=== PATIENT | female | born 1990 | race Caucasian/White ===

== ENCOUNTER 2020-04-03 21:25 | Observation (INO) | payer OTHER ==
[2020-04-03] MEDS ORDERED: ASPIRIN 325 MG TAB PO ONE (21:48)
[2020-04-03 22:05] LABS: Red Blood Count 4.51 M/mm3 (3.65-5.03)
[2020-04-03] MEDS ORDERED: fentaNYL 100 MCG/2 ML INJ IV ONE (22:11)
[2020-04-03] MEDS ORDERED: ONDANSETRON 4 MG/2 ML INJ IV ONE (22:11)
[2020-04-03] MEDS ORDERED: NITROGLYCERIN 2% OINT 1 GM TP ONE (22:11)
--- NOTE | 2020-04-03 22:17 | Emergency Department Report ---
HPI - General Chief Complaint: Chest Pain Time Seen by Provider: 04/03/20 22:05 - HPI HPI: Room 6 The patient is a 29-year-old female present with a chief complaint of chest pain. Patient states for the past 3 days she has had intermittent substernal c hest pain feeling as though "someone is squeezing on my heart." The patient states 20 minutes prior to arrival to the ED today the pain is become constant. Patient admits to occasional shortness of breath but denies nausea/vomiting or diaphoresis. Patient denies fever or cough. Patient currently gives her pain a score of 9.5/10. Patient states she is never had a stress test or cardiac catheterization ED Past Medical Hx - Past Medical History Previous Medical History?: No - Surgical History Past Surgical History?: Yes Additional Surgical History: "abcess to tailbone" - Family History Family history: no significant - Social History Smoking Status: Never Smoker Substance Use Type: None (Denies illicit drug use), Alcohol (Occasional) - Medications Home Medications: Home Medications Medication Instructions Recorded Confirmed Last Taken Type No Known Home Medications [No 04/03/20 04/03/20 Unknown History Reported Home Medications] ED Review of Systems ROS: Stated complaint: CHEST PAIN, DIFFICULTY IN BREATHING Other details as noted in HPI Constitutional: denies: diaphoresis Eyes: denies: eye pain ENT: denies: throat pain Respiratory: shortness of breath. denies: cough Cardiovascular: chest pain Endocrine: no symptoms reported Gastrointestinal: denies: nausea, vomiting Musculoskeletal: denies: back pain Neurological: denies: headache Physical Exam - Physical Exam Vital Signs: Vital Signs 04/03/20 04/03/20 21:42 21:44 Temperature 98.0 F Pulse Rate 85 Respiratory 18 Rate Blood Pressure 174/99 O2 Sat by Pulse 100 Oximetry Physical Exam: GENERAL: The patient is well-developed well-nourished female lying on stretcher not appearing to be in acute distress. [] HEENT: Normocephalic. Atraumatic. Extraocular motions are intact. Patient has moist mucous membranes. NECK: Supple. Trachea midline CHEST/LUNGS: Clear to auscultation. There is no respiratory distress noted. HEART/CARDIOVASCULAR: Regular. There is no tachycardia. There is no gallop rub or murmur. ABDOMEN: Abdomen is soft, nontender. Patient has normal bowel sounds. There is no abdominal distention. SKIN: There is no rash. There is no edema. There is no diaphoresis. and gait. MUSCULOSKELETAL: There is no evidence of acute injury. ED Course Vital Signs 04/03/20 04/03/20 21:42 21:44 Temperature 98.0 F Pulse Rate 85 Respiratory 18 Rate Blood Pressure 174/99 O2 Sat by Pulse 100 Oximetry ED Medical Decision Making - Lab Data Result diagrams: 04/03/20 21:55 04/03/20 21:55 Laboratory Tests 04/03/20 04/03/20 04/03/20 21:55 21:55 21:55 WBC 7.2 RBC 4.51 Hgb 12.6 Hct 39.2 MCV 87 MCH 28 MCHC 32 RDW 16.1 H Plt Count 328 Lymph % (Auto) 40.2 H [place] % (Auto) 13.3 H Eos % (Auto) 1.6 Baso % (Auto) 0.4 Lymph # 2.9 Randall # 1.0 H Eos # 0.1 Baso # 0.0 Seg Neutrophils % 44.5 Seg Neutrophils # 3.2 Sodium 138 Potassium 4.1 Chloride 100.6 Carbon Dioxide 25 Anion Gap 17 BUN 14 Creatinine 0.6 L Estimated GFR > 60 BUN/Creatinine Ratio 23 Glucose 95 Calcium 9.3 Troponin T < 0.010 HCG, Qual Negative - EKG Data -: EKG Interpreted by Me EKG shows normal: sinus rhythm Rate: normal - EKG Data When compared to previous EKG there are: previous EKG unavailable Interpretation: nonspecific ST-T wave marivel (T wave inversion lead III.) - Radiology Data Radiology results: report reviewed (Chest x-ray), image reviewed (Chest x-ray) interpreted by me: Chest x-ray-no focal infiltrates, no pneumothorax [facility] [address] [place] [address] XRay Report Signed Patient: CATHERINE RIVERA MR #: [id number] : 01/1990 Acct:[id number] Age/Sex: 29 / F ADM Date: 04/03/20 Loc: ED Attending Dr: Ordering Physician: CHELA HERNÁNDEZ MD Date of Service: 04/03/20 Procedure(s): XR chest 1V ap Accession Number(s): [id number] cc: CHELA HERNÁNDEZ MD Fluoro Time In Minutes: CHEST 1 VIEW INDICATION: Chest pain. COMPARISON: None. FINDINGS: Support devices: None. Heart: Normal. Lungs/Pleura: No acute pulmonary or pleural findings. IMPRESSION: 1. No acute findings. Signer Name: Ganesh Hernandez MD Signed: 04/03/2020 11:10 PM Workstation Name: [id number] Transcribed By: SW Dictated By: Ganesh Hernandez MD Electronically Authenticated By: Ganesh Hernandez MD Signed Date/Time: 04/03/202309 DD/ 08 TD/TT: - Differential Diagnosis ACS, pericarditis, GERD Critical care attestation.: If time is entered above; I have spent that time in minutes in the direct care of this critically ill patient, excluding procedure time. ED Disposition Clinical Impression: Chest pain Disposition: -09 OP ADMIT IP TO THIS HOSP Is pt being admited?: Yes Does the pt Need Aspirin: Yes Condition: Fair Instructions: Chest Pain (ED) Time of Disposition: 23:48 (Hospitalist paged (Dr Rincon))
[2020-04-03 22:23] LABS: BUN/Creatinine Ratio 23; Blood Urea Nitrogen 14 mg/dL (7-17)
[2020-04-03 22:24] LABS: Calcium 9.3 mg/dL (8.4-10.2)
[2020-04-03 22:32] LABS: Hemoglobin 12.6 gm/dl (10.1-14.3)
[2020-04-03 22:33] LABS: Basophils % (Auto) 0.4 % (0.0-1.8); Eosinophils % (Auto) 1.6 % (0.0-4.3); Hematocrit 39.2 % (30.3-42.9); Lymphocytes % (Auto) 40.2 % (13.4-35.0); Mean Corpuscular HGB Conc 32 % (30-34); Mean Corpuscular Volume 87 fl (79-97); Monocytes % (Auto) 13.3 % (0.0-7.3); Platelet Count 328 K/mm3 (140-440); Red Cell Distribution Width 16.1 % (13.2-15.2)
[2020-04-03 22:34] LABS: Eosinophils # (Auto) 0.1 K/mm3 (0.0-0.4); Lymphocytes # (Auto) 2.9 K/mm3 (1.2-5.4)
--- NOTE | 2020-04-03 23:14 | XRay Report ---
CHEST 1 VIEW INDICATION: Chest pain. COMPARISON: None. FINDINGS: Support devices: None. Heart: Normal. Lungs/Pleura: No acute pulmonary or pleural findings. IMPRESSION: 1. No acute findings. Signer Name: Ganesh Hernandez MD Signed: 04/03/2020 11:10 PM Workstation Name: [id number]
[2020-04-04] MEDS ORDERED: ACETAMINOPHEN 325 MG TAB PO PRN (00:58)
[2020-04-04] MEDS ORDERED: MORPHINE 2 MG/1 ML INJ IV PRN (00:58)
[2020-04-04] MEDS ORDERED: ONDANSETRON 4 MG/2 ML INJ IV PRN (00:58)
[2020-04-04] MEDS ORDERED: NITROGLYCERIN 0.4 MG TAB SUBL SL PRN (00:58)
--- NOTE | 2020-04-04 01:09 | History and Physical Report ---
History of Present Illness Date of examination: 04/04/20 Date of admission: 04/04/20 00:16 Chief complaint: Chest pain History of present illness: 29-year-old female with no significant past medical history presenting to the emergency room today complaining of chest pain. Pain was said was substernal and felt like tightness . Chest pain was initially intermittent and later became constant. She had associated shortness of breath, denies any nausea or vomiting, no diarrhea, no fever or chills, no headaches or dizziness. On a scale of 10 pain was about 9/10 in severity. There is no no relieving or exacerbating factor. Work-up so far in the emergency room has been negative. She has not had any cardiac work-up in the past. Past History Past Medical History: No medical history Past Surgical History: Other (Surgery for abscess on tailbone in the past) Social history: smoking (Smokes tobacco occasionally), alcohol abuse (Drinks alcohol socially) Family history: cancer (Mother is a breast cancer survivor), diabetes (Father also had diabetes), hypertension Medications and Allergies Allergies Allergy/AdvReac Type Severity Reaction Status Date / Time No Known Allergies Allergy Verified 04/03/20 21:44 Home Medications Medication Instructions Recorded Confirmed Last Taken Type No Known Home Medications [No 04/03/20 04/03/20 Unknown History Reported Home Medications] Active Meds: Active Medications Acetaminophen (Tylenol) 650 mg PO Q4H PRN PRN Reason: Pain MILD(1-3)/Fever >100.5/[facility] Aspirin (Ecotrin) 325 mg PO QDAY [facility] Heparin Sodium (Porcine) (Heparin) 5,000 unit SUB-Q Q8HR [facility] Morphine Sulfate (Morphine) 2 mg IV Q5MIN PRN PRN Reason: Chest Pain unrelieved by NTG Nitroglycerin (Nitrostat) 0.4 mg SL Q5M PRN PRN Reason: Chest Pain Ondansetron HCl (Zofran) 4 mg IV Q8H PRN PRN Reason: Nausea And Vomiting Sodium Chloride (Sodium Chloride Flush Syringe 10 Ml) 10 ml IV BID [place] Sodium Chloride (Sodium Chloride Flush Syringe 10 Ml) 10 ml IV PRN PRN PRN Reason: LINE FLUSH Sodium Chloride (Sodium Chloride Flush Syringe 10 Ml) 10 ml IV PRN PRN PRN Reason: LINE FLUSH Review of Systems Constitutional: no fever, no chills Ears, nose, mouth and throat: no nasal congestion, no sore throat Cardiovascular: chest pain, no palpitations Respiratory: shortness of breath, no cough Genitourinary Female: no pelvic pain, no flank pain, no dysuria, no hematuria Musculoskeletal: no neck pain, no low back pain Integumentary: no rash, no pruritis Neurological: no headaches, no confusion Psychiatric: no anxiety, no depression Exam - Constitutional Vitals: Temp Pulse Resp BP Pulse Ox 98.0 F 83 19 133/85 89 04/03/20 21:44 04/03/20 23:00 04/03/20 23:00 04/03/20 23:00 04/03/20 23:00 General appearance: Present: no acute distress, well-nourished, obese - EENT Eyes: Present: EOM intact. Absent: scleral icterus ENT: hearing intact, clear oral mucosa, dentition normal - Neck Neck: Present: supple, normal ROM - Respiratory Respiratory effort: normal Respiratory: bilateral: CTA - Cardiovascular Rhythm: regular Heart Sounds: Present: S1 & S2. Absent: gallop, systolic murmur, diastolic murmur, rub - Extremities Extremities: no ischemia, pulses intact, pulses symmetrical, No edema, Full ROM Peripheral Pulses: within normal limits - Abdominal General gastrointestinal: Present: soft, non-tender, non-distended, normal bowel sounds. Absent: mass - Integumentary Integumentary: Present: clear, warm, dry. Absent: jaundice, rash - Musculoskeletal Musculoskeletal: strength equal bilaterally - Psychiatric Psychiatric: appropriate mood/affect, intact judgment & insight, memory intact, cooperative - Neurologic Neurologic: CNII-XII intact, no focal deficits, moves all extremities HEART Score - HEART Score Troponin: Troponin T < 0.010 ng/mL (0.00-0.029) 04/03/20 21:55 Results - Labs CBC & Chem 7: 04/04/20 01:27 04/04/20 01:27 Labs: Abnormal lab results 04/03/20 04/03/20 Range/Units 21:55 21:55 RDW 16.1 H (13.2-15.2) % Lymph % (Auto) 40.2 H (13.4-35.0) % [place] % (Auto) 13.3 H (0.0-7.3) % [place] # 1.0 H (0.0-0.8) K/mm3 Creatinine 0.6 L (0.7-1.2) mg/dL Assessment and Plan - Patient Problems (1) Chest pain Current Visit: Yes Status: Acute Plan to address problem: Admitted and placed on telemetry. Will check serial cardiac enzymes. Patient will be placed on daily aspirin. Sublingual nitroglycerin and IV morphine as needed for chest pain. Patient will be scheduled for stress test. (2) Morbid obesity with BMI of 45.0-49.9, adult Current Visit: Yes Status: Acute Plan to address problem: Patient encouraged on lifestyle modification. We will also place a dietary consult. (3) DVT prophylaxis Current Visit: Yes Status: Acute Plan to address problem: Place patient on subcutaneous heparin. (4) Full code status Current Visit: Yes Status: Acute
[2020-04-04 02:03] LABS: Basophils % (Auto) 0.7 % (0.0-1.8); Eosinophils # (Auto) 0.1 K/mm3 (0.0-0.4); Eosinophils % (Auto) 1.1 % (0.0-4.3); Hematocrit 36.9 % (30.3-42.9); Lymphocytes # (Auto) 2.1 K/mm3 (1.2-5.4); Lymphocytes % (Auto) 27.6 % (13.4-35.0); Mean Corpuscular HGB Conc 33 % (30-34); Mean Corpuscular Volume 84 fl (79-97); Monocytes # (Auto) 0.8 K/mm3 (0.0-0.8); Monocytes % (Auto) 10.9 % (0.0-7.3); Platelet Count 302 K/mm3 (140-440); Red Blood Count 4.38 M/mm3 (3.65-5.03); Red Cell Distribution Width 15.5 % (13.2-15.2)
[2020-04-04 02:39] LABS: Blood Urea Nitrogen 12 mg/dL (7-17)
[2020-04-04 02:40] LABS: BUN/Creatinine Ratio 20; Calcium 9.2 mg/dL (8.4-10.2); Hemolysis Index 117
[2020-04-04 05:28] LABS: Chol/HDL Ratio 4.18 %
[2020-04-04] MEDS: HEPARIN 5,000 UNIT/1 ML VIAL SUB-Q SCH ×2 (05:36→13:31)
[2020-04-04] MEDS ORDERED: REGADENOSON 0.4 MG/5 ML INJ IV NR (08:19)
--- NOTE | 2020-04-04 11:39 | Consultation ---
History of Present Illness Consult date: 04/04/20 Consult reason: chest pain History of present illness: This is a 29-year old woman who presented with atypical chest pain, intermittent for 3 days. Patient has no prior medical history. No recent cardiac workup. There is no chest pain on exertion or shortness of breath. Denies palpitations. Noted hypertensive in the emergency department, blood pressure 174/99. Initial workup with a chest x-ray is negative and her ECG is benign, sinus rhythm. Laboratory studies shows normal troponin levels. Patient was admitted and referred for cardiac consultation. Past History Past Medical History: No medical history Past Surgical History: Other (Surgery for abscess on tailbone in the past) Social history: smoking (Smokes tobacco occasionally), alcohol abuse (Drinks alcohol socially) Family history: cancer (Mother is a breast cancer survivor), diabetes (Father also had diabetes), hypertension Medications and Allergies Allergies Allergy/AdvReac Type Severity Reaction Status Date / Time No Known Allergies Allergy Verified 04/03/20 21:44 Home Medications Medication Instructions Recorded Confirmed Last Taken Type No Known Home Medications [No 04/03/20 04/03/20 Unknown History Reported Home Medications] Active Meds: Active Medications Acetaminophen (Tylenol) 650 mg PO Q4H PRN PRN Reason: Pain MILD(1-3)/Fever >100.5/[facility] Aspirin (Ecotrin) 325 mg PO QDAY [facility] Heparin Sodium (Porcine) (Heparin) 5,000 unit SUB-Q Q8HR [facility] Last Admin: 04/04/20 05:36 Dose: 5,000 unit Documented by: Morphine Sulfate (Morphine) 2 mg IV Q5MIN PRN PRN Reason: Chest Pain unrelieved by NTG Nitroglycerin (Nitrostat) 0.4 mg SL Q5M PRN PRN Reason: Chest Pain Ondansetron HCl (Zofran) 4 mg IV Q8H PRN PRN Reason: Nausea And Vomiting Sodium Chloride (Sodium Chloride Flush Syringe 10 Ml) 10 ml IV BID [facility] Last Admin: 04/04/20 09:55 Dose: 10 ml Documented by: Sodium Chloride (Sodium Chloride Flush Syringe 10 Ml) 10 ml IV PRN PRN PRN Reason: LINE FLUSH Physical Examination Vital Signs Pulse Resp BP Pulse Ox 85 18 174/99 100 04/03/20 21:42 04/03/20 21:42 04/03/20 21:42 04/03/20 21:42 General appearance: no acute distress HEENT: Positive: PERRL Neck: Positive: trachea midline Cardiac: Positive: Reg Rate and Rhythm Lungs: Positive: Normal Breath Sounds Neuro: Positive: Grossly Intact Extremities: Absent: edema Results 04/04/20 01:27 04/04/20 01:27 Lipids 04/04/20 Range/Units 01:27 Triglycerides 96 (2-149) mg/dL Cholesterol 159 (50-199) mg/dL HDL Cholesterol 38 L (40-59) mg/dL Cholesterol/HDL Ratio 4.18 % CBC 04/03/20 04/04/20 Range/Units 21:55 01:27 WBC 7.2 7.5 (4.5-11.0) K/mm3 RBC 4.51 4.38 (3.65-5.03) M/mm3 Hgb 12.6 12.0 (10.1-14.3) gm/dl Hct 39.2 36.9 (30.3-42.9) % Plt Count 328 302 (140-440) K/mm3 Lymph # 2.9 2.1 (1.2-5.4) K/mm3 [place] # 1.0 H 0.8 (0.0-0.8) K/mm3 Eos # 0.1 0.1 (0.0-0.4) K/mm3 Baso # 0.0 0.0 (0.0-0.1) K/mm3 Comprehensive Metabolic Panel 04/03/20 04/04/20 Range/Units 21:55 01:27 Sodium 138 133 L (137-145) mmol/L Potassium 4.1 5.3 H D (3.6-5.0) mmol/L Chloride 100.6 101.5 (98-107) mmol/L Carbon Dioxide 25 21 L (22-30) mmol/L BUN 14 12 (7-17) mg/dL Creatinine 0.6 L 0.6 L (0.7-1.2) mg/dL Glucose 95 95 (65-100) mg/dL Calcium 9.3 9.2 (8.4-10.2) mg/dL Assessment and Plan - Patient Problems (1) Chest pain Current Visit: Yes Status: Acute Plan to address problem: Atypical chest pain Patient is scheduled for a exercise thallium test and echocardiogram. Results are pending. (2) Obesity Current Visit: Yes Status: Acute
[2020-04-04 12:40] VITALS: BP 108/71
--- NOTE | 2020-04-04 14:38 | Discharge Summary ---
Providers - Providers Date of Admission: 04/04/20 00:16 Date of discharge: 04/04/20 Attending physician: SALOME HOOVER 04/04/20 Consult to Cardiac Rehabilitation [CONS] Routine Reason For Exam: Phase I 04/04/20 00:59 Consult to Cardiology [CONS] Routine Consulting Provider: MARJAN CURIEL Reason For Exam: CHEST PAIN [facility] Condition: [facility] Hospital course: 29-year-old female with no prior medical history and morbidly obese presented to the ER with complaints of Retrosternal chest pain for 3 days. Patient was evaluated in the ER, initial cardiac enzyme and EKG was unremarkable, chest x- ray showed no infiltrates. Patient was admitted and underwent myocardial stress test which was normal. Patient was then discharged home in stable condition with outpatient follow-up. Discharge diagnosis: Atypical chest pain, likely due to GERD Morbid obesity, dietary and exercise recommendation provided Occasional tobacco abuse, counseled for cessation Alcohol abuse, takes alcohol socially, counseled for cessation Physical exam: GENERAL: well-developed and orbitally obese female lying on bed appeared to be in no discomfort. HEENT: Normocephalic. Atraumatic. No conjunctival congestion or icterus. Patient has moist mucous membranes. NECK: Supple. Trachea midline. CHEST/LUNGS: Clear to auscultated bilaterally, breathing nonlabored. No wheezes crackles or rhonchi. HEART/CARDIOVASCULAR: Regular in rate and rhythm. S1 and S2 positive. ABDOMEN: Abdomen is soft, nontender. Patient has normal bowel sounds. SKIN: There is no rash. Warm and dry. NEURO: No focal motor deficit. Follows command. MUSCULOSKELETAL: No joint effusion or tenderness. EXTRIMITY: No edema, no cyanosis or clubbing. PSYCH: Cooperative. Disposition: DC-01 TO HOME OR SELFCARE Time spent for discharge: 34 minutes Core Measure Documentation - Palliative Care Palliative Care/ Comfort Measures: Not Applicable - Core Measures Any of the following diagnoses?: none Exam - Constitutional Vitals: Temp Pulse Resp BP Pulse Ox 97.5 F L 61 18 108/71 96 04/04/20 07:21 04/04/20 07:21 04/04/20 07:21 04/04/20 11:33 04/04/20 07:21 Plan Activity: advance as tolerated Weight Bearing Status: Weight Bear as Tolerated Diet: low fat, low salt [facility] [Primary Care Provider[facility] - 7 Days Prescriptions: Pantoprazole [Protonix] 40 mg PO QDAY #30 tablet
--- NOTE | 2020-04-04 18:35 | Treadmill Report ---
EXERCISE TREADMILL TEST REASON FOR STUDY: Chest pain. The patient exercised for 6 minutes and 46 seconds of a Devang protocol, reaching stage 3 and achieving 8 mets. Peak heart rate was 163 beats per minute. Peak blood pressure was 150/79. There was no chest pain. Test was stopped for fatigue. Baseline ECG was sinus rhythm. With exercise, there were no ST changes of ischemia. No significant dysrhythmias were noted. CONCLUSION: 1. Average exercise capacity. 2. No chest pain. 3. No ST changes of ischemia. 4. No significant dysrhythmias. 5. Negative exercise ECG test. JOB# [id number] CA/NTS
[2020-04-05] MEDS ORDERED: ASPIRIN EC 325 MG TAB PO SCH (10:00)
== END 2020-04-04 16:00 | disposition home or self-care (01) ==
LOC: ED 21:25 → 4A 04-04 00:16
PROVIDERS: ADMIT Internal Medicine Geriatric Medicine; ATTEND Internal Medicine
DX: R07.89 Other chest pain (principal); E66.01 Morbid (severe) obesity due to excess calories; F17.200 Nicotine dependence, unspecified, uncomplicated; Z68.42 Body mass index [BMI] 45.0-49.9, adult; Z79.82 Long term (current) use of aspirin
CPT/HCPCS: 36415; 71045; 80048; 80061; 84484; 84703; 85025; 93005; 93017; 93306; 96372; 96374; 96375; 99285; G0378; J1644; J2405; J3010

== ENCOUNTER 2020-06-30 04:10 | Emergency (ER) | payer OTHER ==
[2020-06-30] MEDS ORDERED: ASPIRIN 325 MG TAB PO ONE (04:32)
[2020-06-30 05:23] LABS: Basophils # (Auto) 0.1 K/mm3 (0.0-0.1); Basophils % (Auto) 1.5 % (0.0-1.8); Eosinophils # (Auto) 0.1 K/mm3 (0.0-0.4); Hematocrit 38.2 % (30.3-42.9); Hemoglobin 12.7 gm/dl (10.1-14.3); Lymphocytes # (Auto) 2.4 K/mm3 (1.2-5.4); Lymphocytes % (Auto) 36.5 % (13.4-35.0); Mean Corpuscular HGB Conc 33 % (30-34); Mean Corpuscular Volume 89 fl (79-97); Monocytes # (Auto) 0.9 K/mm3 (0.0-0.8); Monocytes % (Auto) 14.6 % (0.0-7.3); Platelet Count 321 K/mm3 (140-440); Red Blood Count 4.32 M/mm3 (3.65-5.03); Red Cell Distribution Width 17.1 % (13.2-15.2)
--- NOTE | 2020-06-30 05:34 | XRay Report ---
CHEST 2 VIEWS INDICATION / CLINICAL INFORMATION: Chest Pain. COMPARISON: 04/03/2020 FINDINGS: SUPPORT DEVICES: None. HEART / MEDIASTINUM: No significant abnormality. LUNGS / PLEURA: No significant pulmonary or pleural abnormality. No pneumothorax. ADDITIONAL FINDINGS: No significant additional findings. IMPRESSION: 1. No acute findings. Signer Name: Ramin Sanchez MD Signed: 06/30/2020 5:30 AM Workstation Name: [id number]
[2020-06-30 05:40] LABS: BUN/Creatinine Ratio 15; Blood Urea Nitrogen 12 mg/dL (7-17); Calcium 9.1 mg/dL (8.4-10.2); Hemolysis Index 33
--- NOTE | 2020-06-30 06:55 | Emergency Department Report ---
ED Chest Pain HPI - General Chief Complaint: Chest Pain Stated Complaint: CHEST PAIN/BACK PAIN Time Seen by Provider: 06/30/20 06:52 Source: patient Mode of arrival: Ambulatory Limitations: No Limitations - History of Present Illness Initial Comments: This is a 30-year-old female that complains of sharp pain with some times radiates to her mid back. It is sharp and intermittent. She has had it for the last 4 days. It waxes and wanes. She states that it is similar to the chest pain that was associated with her GI and admission. Her work-up at that time did include stress testing which was negative. Reflux was suspected. She states that her pain is not related to eating nor breathing. She does not complain of shortness of breath nor productive cough. She denies fever or chills. She does not have a primary care physician. The symptoms are nonexertional. 04/04/20 Discharge summary: Hospitalization Condition: Fair Hospital course: 29-year-old female with no prior medical history and morbidly obese presented to the ER with complaints of Retrosternal chest pain for 3 days. Patient was evaluated in the ER, initial cardiac enzyme and EKG was unremarkable, chest x- ray showed no infiltrates. Patient was admitted and underwent myocardial stress test which was negative for ischemia, 2d echo showed preserved EF. Patient was then discharged home in stable condition with outpatient follow-up. Discharge diagnosis: Atypical chest pain, likely due to GERD Morbid obesity, dietary and exercise recommendation provided Occasional tobacco abuse, counseled for cessation Alcohol abuse, takes alcohol socially, counseled for cessation Physical exam: GENERAL: well-developed and orbitally obese female lying on bed appeared to be in no discomfort. HEENT: Normocephalic. Atraumatic. No conjunctival congestion or icterus. Patient has moist mucous membranes. NECK: Supple. Trachea midline. CHEST/LUNGS: Clear to auscultated bilaterally, breathing nonlabored. No wheezes crackles or rhonchi. HEART/CARDIOVASCULAR: Regular in rate and rhythm. S1 and S2 positive. ABDOMEN: Abdomen is soft, nontender. Patient has normal bowel sounds. SKIN: There is no rash. Warm and dry. NEURO: No focal motor deficit. Follows command. MUSCULOSKELETAL: No joint effusion or tenderness. EXTRIMITY: No edema, no cyanosis or clubbing. PSYCH: Cooperative. Complaint: chest pain -: Gradual - Related Data Previous Rx's Medication Instructions Recorded Last Taken Type Pantoprazole [Protonix] 40 mg PO QDAY #30 tablet 04/04/20 Unknown Rx traMADoL [Ultram 50 MG tab] 50 mg PO Q6HR PRN #10 tablet 06/30/20 Unknown Rx Allergies Allergy/AdvReac Type Severity Reaction Status Date / Time No Known Allergies Allergy Verified 04/03/20 21:44 Heart Score - HEART Score History: Slightly suspicious EKG: Normal Age: < 45 Risk factors: 1-2 risk factors Troponin: < normal limit HEART Score: 1 - Critical Actions Critical Actions: 0-3 pts:0.9-1.7%risk of adverse cardiac event.Candidate for discharge ED Review of Systems ROS: Stated complaint: CHEST PAIN/BACK PAIN Other details as noted in HPI Constitutional: denies: chills, fever Eyes: denies: eye pain, eye discharge, vision change ENT: denies: ear pain, throat pain Respiratory: denies: cough, shortness of breath, wheezing Cardiovascular: as per HPI, chest pain. denies: palpitations Endocrine: no symptoms reported Gastrointestinal: denies: abdominal pain, nausea, diarrhea Genitourinary: denies: urgency, dysuria, discharge Musculoskeletal: as per HPI, back pain. denies: joint swelling, arthralgia Skin: denies: rash, lesions Neurological: denies: headache, weakness, paresthesias Psychiatric: denies: anxiety, depression Hematological/Lymphatic: denies: easy bleeding, easy bruising ED Past Medical Hx - Past Medical History Previous Medical History?: No Hx Congestive Heart Failure: No Hx Diabetes: No Hx Asthma: No Hx COPD: No - Surgical History Additional Surgical History: "abcess to [facility]" - Family History Family history: no significant - Social History Smoking Status: Never Smoker Substance Use Type: None - Medications Home Medications: Home Medications Medication Instructions Recorded Confirmed Last Taken Type Pantoprazole [Protonix] 40 mg PO QDAY #30 tablet 04/04/20 Unknown Rx traMADoL [Ultram 50 MG tab] 50 mg PO Q6HR PRN #10 tablet 06/30/20 Unknown Rx ED Physical Exam - General Limitations: No Limitations General appearance: alert, in no apparent distress, obese (Somewhat) - Head Head exam: Present: atraumatic, normocephalic - Eye Eye exam: Present: normal appearance. Absent: scleral icterus - ENT ENT exam: Present: mucous membranes moist - Neck Neck exam: Present: normal inspection - Respiratory Respiratory exam: Present: normal lung sounds bilaterally. Absent: respiratory distress - Cardiovascular Cardiovascular Exam: Present: regular rate, normal rhythm. Absent: systolic murmur, diastolic murmur, rubs, gallop - GI/Abdominal GI/Abdominal exam: Present: soft, normal bowel sounds. Absent: distended, tenderness, guarding, rebound, rigid - Extremities Exam Extremities exam: Present: normal inspection, normal capillary refill. Absent: pedal edema, joint swelling, calf tenderness - Back Exam Back exam: Present: normal inspection - Neurological Exam Neurological exam: Present: alert, oriented X3, CN II-XII intact. Absent: motor sensory deficit - Psychiatric Psychiatric exam: Present: normal affect, normal mood - Skin Skin exam: Present: warm, dry, intact, normal color. Absent: rash ED Course Vital Signs 06/30/20 06/30/20 06/30/20 04:35 06:40 06:45 Temperature 98.0 F 98.2 F Pulse Rate 75 81 71 Respiratory 18 21 24 Rate Blood Pressure 155/86 167/98 Blood Pressure 157/87 [Left] O2 Sat by Pulse 99 98 99 Oximetry 06/30/20 06/30/20 06/30/20 07:00 07:15 07:30 Temperature Pulse Rate 72 70 66 Respiratory 16 19 23 Rate Blood Pressure 147/86 148/90 148/96 Blood Pressure [Left] O2 Sat by Pulse 100 99 99 Oximetry 06/30/20 06/30/20 06/30/20 07:45 08:00 08:15 Temperature Pulse Rate 65 65 66 Respiratory 29 H 22 25 H Rate Blood Pressure 153/92 155/101 141/91 Blood Pressure [Left] O2 Sat by Pulse 97 98 98 Oximetry 06/30/20 08:30 Temperature Pulse Rate Respiratory 16 Rate Blood Pressure Blood Pressure [Left] O2 Sat by Pulse Oximetry ED Medical Decision Making - Lab Data Result diagrams: 06/30/20 05:01 06/30/20 05:01 Laboratory Results - last 24 hr 06/30/20 06/30/20 06/30/20 05:01 05:01 07:22 WBC 6.5 RBC 4.32 Hgb 12.7 Hct 38.2 MCV 89 MCH 29 MCHC 33 RDW 17.1 H Plt Count 321 Lymph % (Auto) 36.5 H [place] % (Auto) 14.6 H Eos % (Auto) 2.0 Baso % (Auto) 1.5 Lymph # (Auto) 2.4 [place] # (Auto) 0.9 H Eos # (Auto) 0.1 Baso # (Auto) 0.1 Seg Neutrophils % 45.4 Seg Neutrophils # 2.9 PT 13.2 INR 0.98 APTT 27.6 D-Dimer < 135 Sodium 138 Potassium 3.9 Chloride 102.8 Carbon Dioxide 23 Anion Gap 16 BUN 12 Creatinine 0.8 Estimated GFR > 60 BUN/Creatinine Ratio 15 Glucose 90 Calcium 9.1 Total Bilirubin Direct Bilirubin AST ALT Alkaline Phosphatase Troponin T < 0.010 NT-Pro-B Natriuret Pep Total Protein Albumin Albumin/Globulin Ratio Lipase Plasma/Serum Alcohol 06/30/20 06/30/20 07:22 07:22 WBC RBC Hgb Hct MCV MCH MCHC RDW Plt Count Lymph % (Auto) [place] % (Auto) Eos % (Auto) Baso % (Auto) Lymph # (Auto) [place] # (Auto) Eos # (Auto) Baso # (Auto) Seg Neutrophils % Seg Neutrophils # PT INR APTT D-Dimer Sodium Potassium Chloride Carbon Dioxide Anion Gap BUN Creatinine Estimated GFR BUN/Creatinine Ratio Glucose Calcium Total Bilirubin 0.20 Direct Bilirubin < 0.2 AST 20 ALT 19 Alkaline Phosphatase 66 Troponin T < 0.010 NT-Pro-B Natriuret Pep 31.43 Total Protein 7.4 Albumin 3.8 L Albumin/Globulin Ratio 1.1 Lipase 22 Plasma/Serum Alcohol < 0.01 - EKG Data -: EKG Interpreted by Ak EKG shows normal: sinus rhythm, axis, intervals, QRS complexes, ST-T waves Rate: normal - EKG Data Interpretation: no acute changes, other (RSR in standard lead III is nonspecific) - Radiology Data Radiology results: report reviewed, image reviewed Chest x-ray no acute process Ultrasound normal exam Critical care attestation.: If time is entered above; I have spent that time in minutes in the direct care of this critically ill patient, excluding procedure time. ED Disposition Clinical Impression: Atypical chest pain Disposition: DC-01 TO HOME OR SELFCARE Is pt being admited?: No Does the pt Need Aspirin: No Condition: Stable Instructions: Chest Pain (ED) Additional Instructions: Return any acute change or worsening. Prescriptions: traMADoL [Ultram 50 MG tab] 50 mg PO Q6HR PRN #10 tablet PRN Reason: Pain Referrals: PRIMARY CARE, [Primary Care Provider] - 3-5 Days [facility] [Provider Group] - 2-3 Days Time of Disposition: 10:18
[2020-06-30] MEDS ORDERED: ONDANSETRON 4 MG/2 ML INJ IV ONE (07:04)
[2020-06-30] MEDS ORDERED: MORPHINE 2 MG/1 ML INJ IV ONE (07:04)
[2020-06-30] MEDS ORDERED: ASPIRIN 325 MG TAB ONE (07:55)
[2020-06-30 08:20] LABS: Alanine Aminotransferase 19 units/L (7-56); Albumin 3.8 g/dL (3.9-5)
[2020-06-30 08:21] LABS: Bilirubin,Direct < 0.2 mg/dL (0-0.2)
[2020-06-30 08:22] LABS: INR 0.98 (0.87-1.13)
[2020-06-30 08:23] LABS: Partial Thromboplastin Time 27.6 Sec. (24.2-36.6)
--- NOTE | 2020-06-30 09:20 | Ultrasound Report ---
LIMITED RUQ ABDOMINAL ULTRASOUND INDICATION: CP radiating to back. COMPARISON: No relevant prior imaging study available. FINDINGS: Pancreas: Visualized portions show no significant abnormality. Abdominal Aorta: No significant abnormality. IVC: No significant abnormality. Liver: The liver measures 14.8 cm in length. No significant abnormality. Normal hepatopedal blood lawrence w in the main portal vein. Gallbladder: No significant abnormality. Bile ducts: No significant abnormality. Common bile duct measures 4.3 mm. Right kidney: No significant abnormality visualized.. Free fluid: None. Additional Findings: None. IMPRESSION: 1. Normal exam. Signer Name: MarcoA ntonio Solano MD Signed: 06/30/2020 9:15 AM Workstation Name: [id number]
[2020-06-30 14:32] VITALS: BP 130/68
== END 2020-06-30 10:35 | disposition home or self-care (01) ==
LOC: ED 04:10
DX: R07.89 Other chest pain (principal); Z79.899 Other long term (current) drug therapy
CPT/HCPCS: 36415; 71046; 76705; 80048; 80076; 83690; 83880; 84484; 85025; 85379; 85610; 85730; 93005; 96374; 96375; 99285; J2270; J2405; 80320; G0480